=== PATIENT | male | born 1990 | race Caucasian/White ===

== ENCOUNTER 2020-06-25 18:54 | Emergency (ER) | payer OTHER, SELFPAY ==
[2020-06-25 19:07] VITALS: BP 137/80; PULSE 87; RESP 16; TEMP 36.8; O2SAT 99
--- NOTE | 2020-06-25 19:15 | ED.SKABFB ---
HPI - Skin/Abscess/Foreign Bdy General Chief complaint: Skin/Abscess/Foreign Body Stated complaint: Spider bite Source: patient Mode of arrival: ambulatory Limitations: no limitations History of Present Illness HPI narrative: this is a 29-year-old gentleman that presents with some abscess located on left side of his face lower jaw area that has been there for the last 2 to 3 days patient had noticed at enlarge with a central punctate area that he that he popped and express some fluid currently there is area of erythema with some drainage warmth and tenderness, no fever chills no shortness of breath. complaint: abscess/boil Onset (ago): day(s) Location: face Severity: moderate Severity scale (1-10): 5 Quality: aching Pain Consistency: intermittent Related Data Allergies Allergy/AdvReac Type Severity Reaction Status Date / Time No Known Allergies Allergy Verified 06/25/20 19:12 Review of Systems Review of Systems: All systems reviewed & are unremarkable except as noted in HPI and below PMFSH Past Medical History Medical History Patient denies medical problems Exam Const: General: no acute distress and alert Orientation/consciousness: patient oriented x3 HENMT: Head: normal to inspection Eyes: Conjunctivae: conjunctivae normal Pupils: Equal, round and reactive pupils present EOM: EOMs intact bilaterally Direct Ophthalmoscopy: no photophobia Neck: Neck: normal visual inspection, no lymphadenopathy and no meningeal signs Chest: Chest palpation & inspection: normal inspection of the chest Resp: Effort & Inspection: normal respiratory effort Auscultation: clear to auscultation bilaterally Cardio: Rate: regular rate Rhythm: regular rhythm GI: GI Palp: Yes Soft to palpation Skin: General skin exam: normal color Wounds: wounds noted Other: has an area of erythema with swelling left lower jaw area with drainage warmth and tenderness Neuro: General: moves all extremities, no meningeal signs and no focal motor deficits Extrem: General: normal to inspection Psych: Mental Status: mental status grossly normal Course Course Emergency Course: patient given IM ceftriaxone apply triple antibiotic ointment and updated patient with his tetanus, and give patient list of physicians to establish with and send antibiotics by mouth and antibiotic ointment to his pharmacy. Vital Signs Vital signs: Vital Signs Temperature 36.8 C 06/25/20 19:07 Pulse Rate 87 06/25/20 19:07 Respiratory Rate 16 06/25/20 19:07 Blood Pressure 137/80 06/25/20 19:07 Pulse Oximetry 99 06/25/20 19:07 Temperature 36.8 C 06/25/20 19:07 Pulse Rate 87 06/25/20 19:07 Respiratory Rate 16 06/25/20 19:07 Blood Pressure 137/80 06/25/20 19:07 Pulse Oximetry 99 06/25/20 19:07 Critical Care Time Critical Care Time Critical Care Time: No Discharge Plan Discharge Clinical Impression: Cellulitis Qualifiers: Site of cellulitis: face Qualified Code(s): L03.211 - Cellulitis of face Abscess of skin or subcutaneous tissue Qualifiers: Site of cutaneous abscess: face Qualified Code(s): L02.01 - Cutaneous abscess of face Patient Disposition: Home, Self-Care Condition: Stable Instructions: Antibiotic Form, Cellulitis (ED), Abscess (ED) Additional Instructions: Take medicine as prescribed and follow-up with primary care physician within 1 to 2 weeks if symptoms persist or worsen. Prescriptions: New amoxicillin-pot clavulanate [Augmentin] 875-125 mg tablet 1 tablet PO Q12H Qty: 20 RF: 0 mupirocin 2 % ointment 1 applic topical TID 7 Days Qty: 15 RF: 0 Follow-up/Referrals: UNKNOWN,DOCTOR [Primary Care Provider] - Time of Disposition: :20
[2020-06-25] MEDS: TETANUS,DIPHTHERIA,AC PERTUSSIS ADULT 0.5 ML (ADACEL) IM (20:12)
[2020-06-25] MEDS: NEOMYCIN/POLYMYXIN/BACITRACIN OINTMENT PACKET 1 PACKET TOPICAL (20:13)
[2020-06-25] MEDS: cefTRIAXone 1 GM VIAL IM (20:15)
[2020-06-25] MEDS: LIDOCAINE HCL 1% LOCAL INJ 20 ML VIAL (20:15)
[2020-06-25 20:33] VITALS: BP 133/78; PULSE 69; RESP 15; TEMP 36.8; O2SAT 99
== END 2020-06-25 20:40 | disposition home or self-care (01) ==
PROVIDERS: Emergency Provider Emergency Medicine
DX: L03.211 Cellulitis of face (principal); L02.01 Cutaneous abscess of face
CPT/HCPCS: 90471; 90715; 96372; 99283; J0696

== ENCOUNTER 2021-01-13 12:59 | Emergency (ER) | payer OTHER, SELFPAY ==
[2021-01-13] VITALS (7 sets, daily range): BP systolic 120–135; BP diastolic 62–78; PULSE 54–78; RESP 18–34; TEMP 36.9; O2SAT 94–100
--- NOTE | ~2021-01-13 | XR_ITS ---
EXAMINATION: XR chest 2V DATE: 01/13/2021 13:30 INDICATION: Left chest pain TECHNIQUE: AP and lateral views of the chest are obtained. COMPARISON: None available FINDINGS: The lungs are free of acute opacities. There is no pleural effusion or pneumothorax. The ca rdiomediastinal silhouette is normal. The visualized bones and soft tissues are unremarkable. IMPRESSION: 1. No acute cardiopulmonary abnormality. Reviewed, dictated and finalized at location A.
--- NOTE | 2021-01-13 13:06 | ECG_ITS ---
Measurements Intervals [place] Rate: 50 P: 62 OR: 165 QRS: 54 QRSD: 86 T: 42 QT: 422 QTc: 388 Interpretive Statements SINUS BRADYCARDIA BORDERLINE ECG Electronically Signed On 01-13-2021 14:23:32 CDT by Laz Beal D.O.
--- NOTE | 2021-01-13 13:45 | ED.CHESTPAIN ---
HPI - Chest Pain General Chief Complaint: Chest Pain Stated Complaint: CP Time Seen by Provider: 01/13/21 13:00 Source: patient and RN notes reviewed Mode of arrival: EMS Limitations: no limitations History of Present Illness HPI narrative: This is a 30 year old male who presents for evaluation of left chest pain. He complaints of intermittent left anterior chest pain that has been occurring for 3 years. He states he has never had this pain evaluated before. Today he was sitting in [facility] when he developed sudden onset sharp left anterior chest pain. He states he was unable to breathe and he has tingling all over. He was afraid he was going to . This pain started 1.5 hours ago. He feels better now. He denies cough, fever, leg swelling, calf pain , vomiting or diarrhea. He is concerned because he reports strong family history of heart disease. He smokes 0.5 ppd . He denies drug use other than marijuana. Related Data Allergies Allergy/AdvReac Type Severity Reaction Status Date / Time No Known Allergies Allergy Verified 01/13/21 13:05 Review of Systems Review of Systems: All systems reviewed & are unremarkable except as noted in HPI and below PMFSH Past Medical History Medical History (Updated 01/13/21 @ 17:32 by Inga Pena MD) Patient denies medical problems Surgical History Surgical History (Updated 01/13/21 @ 13:49 by Inga Pena MD) No pertinent past surgical history Family History Family History (Updated 01/13/21 @ 13:49 by Inga Pena MD) Father Heart disease Social History Social History (Updated 01/13/21 @ 13:49 by Inga Pena MD) Smoking packs per day: 0.5 Smoking cigarettes per day: 10.0 Smoking status: Current every day smoker Exam Const: General: alert Orientation/consciousness: patient oriented x3 Eyes: EOM: EOMs intact bilaterally Resp: Effort & Inspection: normal respiratory effort and no retractions Auscultation: clear to auscultation bilaterally Cardio: Rate: regular rate Rhythm: regular rhythm Heart sounds: no murmurs GI: GI Palp: Yes Soft to palpation, No Tenderness to palpation present (GI) and No Guarding due to palpation present (GI) Auscultation: normal bowel sounds Skin: General skin exam: normal color Rashes: no rashes Neuro: General: patient oriented x3, moves all extremities and CN's II-XI intact bilaterally Extrem: General: normal to inspection Psych: Affect: Anxious affect present Other: intermittently hyperventilate Course Reevaluation(s) Reevaluation #1: Patient reports he feels better. This pain is atypical and it is not exertionally. He is stable for discharge home. Date: 01/13/21 Time: 17:29 Vital Signs Vital signs: Vital Signs Temperature 98.4 F 01/13/21 13:01 Pulse Rate 54 L 01/13/21 13:01 Respiratory Rate 34 H 01/13/21 13:01 Blood Pressure 135/62 01/13/21 13:01 Pulse Oximetry 100 01/13/21 13:01 Temperature 98.4 F 01/13/21 13:01 Pulse Rate 78 01/13/21 17:43 Respiratory Rate 18 01/13/21 17:43 Blood Pressure 132/78 01/13/21 17:43 Pulse Oximetry 99 01/13/21 17:43 MDM - Chest Pain Lab Data Attestation: I reviewed the patient's lab results. Result diagrams: 01/13/21 14:30 01/13/21 14:30 Labs: Lab Results 01/13/21 01/13/21 01/13/21 Range/Units 14:30 14:30 14:30 WBC 11.7 H (4.5-10.0) K/mm3 RBC 4.98 (4.6-6.20) M/mm3 Hgb 14.9 (14.0-18.0) g/dL Hct 43.9 (42.0-52.0) % MCV 88.2 (80-100) fl MCH 29.9 (26-34) pg MCHC 33.9 (32-36) g/dl RDW 13.1 (11.5-14.5) % Plt Count 221 (150-375) k/mm3 MPV 10.1 (7.4-10.4) fl Immature Gran % (Auto) 0.4 (0-0.5) % Neut % (Auto) 77.2 H (45.5-73.1) % Lymph % (Auto) 14.7 L (18.3-44.2) % [place] % (Auto) 7.2 (2.6-8.5) % Eos % (Auto) 0.1 (0-4.4) % Baso % (Auto) 0.4 (0.2-1.2) % Lymph # (Auto) 1.71 (0.9-3.2) K/mm3 [place] # (Auto
[2021-01-13] MEDS: KETOROLAC 15 MG/ML VIAL (*BKC) IV PUSH (13:49)
[2021-01-13 14:39] LABS: Basophils Absolute Auto 0.1 K/mm3 (0.0-0.1); Basophils Percent Auto 0.4 % (0.2-1.2); Eosinophils Percent Auto 0.1 % (0-4.4); Hematocrit 43.9 % (42.0-52.0); Hemoglobin 14.9 g/dL (14.0-18.0); Immature Granulocyte Absolute 0.05 K/mm3 (0.00-0.031); Immature Granulocyte Percent A 0.4 % (0-0.5); Lymphocytes Absolute Auto 1.71 K/mm3 (0.9-3.2); Lymphocytes Percent Auto 14.7 % (18.3-44.2); Mean Corpuscular HGB Conc 33.9 g/dl (32-36); Mean Corpuscular Hemoglobin 29.9 pg (26-34); Mean Corpuscular Volume 88.2 fl (80-100); Mean Platelet Volume 10.1 fl (7.4-10.4); Monocytes Absolute Auto 0.8 K/mm3 (0.1-0.6); Monocytes Percent Auto 7.2 % (2.6-8.5); Neutrophils Percent Auto 77.2 % (45.5-73.1); Platelet Count Result 221 k/mm3 (150-375); Red Blood Count 4.98 M/mm3 (4.6-6.20); Red Cell Distribution Width 13.1 % (11.5-14.5); White Blood Count 11.7 K/mm3 (4.5-10.0)
[2021-01-13 14:49] LABS: Prothrombin Time 12.9 Seconds (11.1-14.7)
[2021-01-13 14:50] LABS: Anion Gap 9 mmol/L (8-16); Blood Urea Nitrogen 14 mg/dL (9-20); Calcium 9.5 mg/dL (8.4-10.2); Carbon Dioxide 24 mmol/L (22-30); Chloride 107 mmol/L (98-107); Estimated CRCL calculation 99 ml/min; Estimated Glomerular Filt Rate > 60; Glucose 101 mg/dL (65-110); Partial Thromboplastin Time 25.2 SECONDS (22.3-36.8); Potassium 3.2 mmol/L (3.4-5.0); Sodium 140 mmol/L (137-145)
[2021-01-13 14:51] LABS: D Dimer 0.27 ug/mL (<0.48)
[2021-01-13 15:02] LABS: Troponin I < 0.012 ng/mL (0.000-0.034)
[2021-01-13 15:46] LABS: Amphetamine Screen Urine Negative (Negative); Barbiturate Screen Urine Negative (Negative); Benzodiazepines Screen Urine Negative (Negative); Cannabinoid Screen Urine Positive (Negative); Cocaine Screen Urine Positive (Negative); Methadone Screen Urine Negative (Negative); Opiate Screen Urine Negative (Negative); Phencyclidine Screen Urine Negative (Negative)
[2021-01-13 17:26] LABS: Troponin I < 0.012 ng/mL (0.000-0.034)
[2021-01-13] MEDS: LORazepam (*CRX) 0.5 MG TABLET PO (17:35)
== END 2021-01-13 17:44 ==
PROVIDERS: Emergency Provider General Practice
DX: R07.89 Other chest pain (principal); F14.90 Cocaine use, unspecified, uncomplicated; F17.210 Nicotine dependence, cigarettes, uncomplicated; R00.1 Bradycardia, unspecified
CPT/HCPCS: 36415; 71046; 80048; 80307; 84484; 85025; 85380; 85610; 85730; 93005; 96374; 99284; A9270; J1885